=== PATIENT | male | born 1940 | race Caucasian/White ===

== ENCOUNTER → 2017-05-26 | Outpatient (CLI) | payer MEDICARE ==
[~2017-05-26] MED LIST: AMLO-96 PO; ASP81 PO; ASPI-1403; CEF300 PO; CEP500 PO; FURO-45 PO; LISI5TAB25 PO; LOR5 PO; MECL25TA9 PO; METO25TA23 PO; NAP250 PO; OMEP-125 PO; PRAV20TA65 PO; PRE20 PO; PRILOSEC
--- NOTE | 2017-05-26 14:28 | EKG ---
FACILITY: [facility] - [place], [place] PATIENT NAME: KELLY GALVAN : [id number] MR: [id number] V: [id number] EXAM DATE: ORDERING PHYSICIAN: JULIETA SMALL TECHNOLOGIST: TAINA French Reason : HTN, PRE-OP Blood Pressure : / mmHG Vent. Rate : 070 BPM Atrial Rate : 070 BPM P-R Int : 170 ms QRS Dur : 096 ms QT Int : 414 ms P-R-T Axes : 046 067 029 degrees QTc Int : 447 ms Sinus rhythm Nonspecific ST findings inferolaterally When compared with ECG of 08-OCT-2012 17:09, No significant change was found Confirmed by MONSE MONTANA ([id number]) on 05/26/2017 7:51:56 PM Referred By: STACI Confirmed By:MONSE MONTANA
== END ==
LOC: RESP 14:15
PROVIDERS: ATTEND Family Medicine
DX: Z01.810 Encounter for preprocedural cardiovascular examination (principal); H26.9 Unspecified cataract; I10 Essential (primary) hypertension
CPT/HCPCS: 93005

== ENCOUNTER → 2017-06-09 | Outpatient (CLI) | payer MEDICARE ==
--- NOTE | 2017-06-09 14:54 | RADIOLOGY IMAGING REPORT ---
[place] [facility] [place]IENT NAME: Derian Torres : 1940 MR: [id number] V: [id number] EXAM DATE: ORDERING PHYSICIAN: JULIETA SMALL TECHNOLOGIST: Location: [facility] - [place] Patient: Derian Torres : 1940 Visit/Account:[id number] Date of Sevice: 06/09/2017 KIDNEYS EXAMINATION: Renal ultrasound. History: Hematuria, history of prostate cancer COMPARISON STUDIES: CT October 15, 2016 FINDINGS: Kidneys: Right kidney- 9.6 x 5.2 x 4.1 cm Left kidney- 9.9 x 7.8 x 6.6 cm Uniform and symmetric blood flow in each kidney by Doppler ultrasound. Hydronephrosis: none There is a 1 cm cyst upper pole the right kidney is a lobular contour to the left kidney. Parapelvic cyst were not demonstrated. The resistive index on the right 0.64 and on the left 0.66 Bladder: Prevoid volume 385 mL. Post void residual 173 mL. There is a large diverticulum projecting from the posterior left side of the bladder. Bilateral ureteral jets are present Abdominal aorta and IVC: Not visualized IMPRESSION: There is a large diverticulum projecting from the posterior left side the bladder 1 cm cyst upper pole the right kidney Left kidney has a lobular contour Report Dictated By: Fina Humphreys MD at 06/09/2017 2:26 PM Report E-Signed By: Fina Humphreys MD at 06/09/2017 2:50 PM WSN:[email or web address]
== END ==
LOC: US 01:36
PROVIDERS: ATTEND Family Medicine
DX: N32.3 Diverticulum of bladder (principal); N28.1 Cyst of kidney, acquired; N28.9 Disorder of kidney and ureter, unspecified
CPT/HCPCS: 76705

== ENCOUNTER → 2017-06-18 | Outpatient (CLI) | payer MEDICARE ==
--- NOTE | 2017-06-18 13:26 | RADIOLOGY IMAGING REPORT ---
FACILITY: [facility] PATIENT NAME: Derian Torres : 1940 MR: [id number] V: [id number] EXAM DATE: ORDERING PHYSICIAN: JULIETA SMALL TECHNOLOGIST: Location: [facility] - [place] Patient: Derian Torres : 1940 Visit/Account:[id number] Date of Sevice: 06/18/2017 LUMBAR SPINE 2 OR 3 VIEW History: Low back pain. Comparison study: None. Findings: The lumbar spine has normal lordotic curvature and there is no fracture or spondylolisthes is or spondylolysis. There are prominent diffuse discogenic degenerative changes throughout the lumbar spine that manifest as loss of disc space height and spondylosis. The sacroiliac joints are unremarkable. There is scoliosis of the thoracolumbar spine with convexity pointing to the right. IMPRESSION: 1. No fracture or spondylolisthesis. 2. Diffuse and severe discogenic degenerative changes. 3. Scoliosis as described above. Report Dictated By: Kd Pitts MD at 06/18/2017 1:21 PM Report E-Signed By: Kd Pitts MD at 06/18/2017 1:22 PM WSN:[email or web address]
--- NOTE | 2017-06-18 13:29 | RADIOLOGY IMAGING REPORT ---
[place] [facility] [place]: Derian Torres : 1940 MR: [id number] V: [id number] EXAM DATE: ORDERING PHYSICIAN: JULIETA SMALL TECHNOLOGIST: Location: [facility] Patient: Derian Torres : 1940 Visit/Account:[id number] Date of Sevice: 06/18/2017 THORACIC SPINE 2 VIEW History: Back pain. Comparison study: None. Findings: There are discogenic degenerative changes throughout the thoracic spine. There are is an anterior wedge deformity in the mid to upper thoracic spine that likely represents a chronic osteoporotic vertebral body compression fracture. In the cervical spine there are discogenic degenerative changes in its midportion. At C4-5 there is anterior spondylolisthesis of 2 mm. At C5-6 there is retrospondylolisthesis of 1-2 mm. IMPRESSION: 1. Discogenic degenerative changes throughout the thoracic spine. 2. Chronic appearing osteoporotic vertebral body anterior wedge compression fracture in the mid to u pper thoracic spine. 3. Discogenic degenerative changes in the cervical spine with subtle anterior spondylolisthesis at C 4-5 and retrospondylolisthesis at C5-6. Report Dictated By: Kd Pitts MD at 06/18/2017 1:22 PM Report E-Signed By: Kd Pitts MD at 06/18/2017 1:24 PM WSN:[email or web address]
== END ==
LOC: RAD 12:14
PROVIDERS: ATTEND Family Medicine
DX: M51.36 Other intervertebral disc degeneration, lumbar region (principal); M41.85 Other forms of scoliosis, thoracolumbar region; M48.54XA Collapsed vertebra, not elsewhere classified, thoracic region, initial encounter for fracture; M43.12 Spondylolisthesis, cervical region
CPT/HCPCS: 72070; 72100

== ENCOUNTER → 2017-07-25 | Outpatient (CLI) | payer MEDICARE | LOC: LAB 08:33 | PROVIDERS: ATTEND Urology | DX: C61 Malignant neoplasm of prostate (principal) | CPT/HCPCS: 36415; 84153 ==

== ENCOUNTER → 2017-11-17 | Outpatient (CLI) | payer MEDICARE ==
[2017-11-17 10:38] LABS: PLATELET COUNT, AUTOMATED 202 K/uL (150-450)
== END ==
LOC: LAB 10:18
PROVIDERS: ATTEND Urology
DX: C61 Malignant neoplasm of prostate (principal)
CPT/HCPCS: 36415; 82374; 82435; 84132; 84153; 84295; 85025

== ENCOUNTER → 2017-11-25 | Outpatient (CLI) | payer MEDICARE ==
--- NOTE | 2017-11-25 14:35 | RADIOLOGY IMAGING REPORT ---
[place] [facility] [place]: Derian Torres : 1940 MR: [id number] V: [id number] EXAM DATE: ORDERING PHYSICIAN: JULEITA SMALL TECHNOLOGIST: Location: [facility] - [place] Patient: Derian Torres : 1940 Visit/Account:[id number] Date of Sevice: 11/25/2017 Exam type: RIBS RIGHT History: Right-sided rib pain x1 week Comparison: February 11, 2017 Findings: Three views of the right ribs reveal no gross evidence of acute fracture there suggestion of possible old fractures through the anterior right 10th and 11th ribs. No evidence of pneumothorax or pulmona ry consolidation.. IMPRESSION: 1. No evidence of acute right rib fracture Possible old fracture to the anterior right 10th and 11th ribs Report Dictated By: Fina Humphreys MD at 11/25/2017 2:02 PM Report E-Signed By: Fina Humphreys MD at 11/25/2017 2:30 PM WSN:[email or web address]
== END ==
LOC: RAD 10:47
PROVIDERS: ATTEND Family Medicine
DX: R07.89 Other chest pain (principal)
CPT/HCPCS: 71100

== ENCOUNTER → 2018-03-14 | Outpatient (CLI) | payer MEDICARE ==
[~2018-03-14] MED LIST changes: +AMLO-111 PO; -AMLO-96 PO
[2018-03-14 08:29] LABS: PLATELET COUNT, AUTOMATED 234 K/uL (150-450)
== END ==
LOC: LAB 08:03
PROVIDERS: ATTEND Urology
DX: C61 Malignant neoplasm of prostate (principal)
CPT/HCPCS: 36415; 82040; 82247; 82310; 82374; 82435; 82565; 82947; 84075; 84132; 84153; 84155; 84295; 84450; 84460; 84520; 85025

== ENCOUNTER 2018-03-22 09:38 | Emergency (ER) | payer MEDICARE ==
[2018-03-22] MEDS ORDERED: AMLO-111 PO (09:47)
--- NOTE | 2018-03-22 10:15 | ER Report ---
History and Physical Time Seen By MD: 09:55 Hx. of Stated Complaint: SLIPPED THIS AM - FELL ONTO LEFT KNEE. HPI/ROS CHIEF COMPLAINT: right knee pain HISTORY OF PRESENT ILLNESS: Patient was walking down the ramp from his house after he had shoveled it off. He notes that the ramp was icy. He normally walks with a cane, though was not walking lidocaine at the time however was holding onto the railing. He slipped with the ice and landed directly on his right knee. He was able to get himself up, and he has been weight bearing with assistance of a cane. However, pain has been gradually increasing as has swelling at the area. The patient now complains of moderate pain to right knee. He does not have weakness, numbness. He has had prior surgery on right ankle but otherwise no other prior bony surgery. He did not otherwise injure himself in the fall. He had no preceding or subsequent shortness of breath, chest pain, headache, or other symptoms. REVIEW OF SYSTEMS: Constitutional: No fever, no chills eyes - no visual change Cardiovascular: No chest pain, no palpitations. Respiratory: No cough, no shortness of breath. Gastrointestinal: No abdominal pain, no vomiting Musculoskeletal: No back pain. Skin: No rashes. Neurological: No headache. Remainder of the 14 system rev: Yes Allergies: Coded Allergies: shellfish derived (Verified Allergy, Mild, VOMITING, 12/27/14) Uncoded Allergies: SHELLFISH (Allergy, Intermediate, NAUSEA/VOMITING, 10/08/12) Home Meds Reported Medications Amlodipine Besylate (AMLODIPINE BESYLATE) 5 Mg Tablet, 0.5 TAB PO QPM, TAB 03/22/18 Amlodipine Besylate (AMLODIPINE BESYLATE) 5 Mg Tablet, 1 TAB PO QDAY, TAB 12/27/14 Pravastatin Sodium (PRAVACHOL) 20 Mg Tablet, 20 MG PO DAILY 10/08/12 Metoprolol Succinate (METOPROLOL SUCCINATE) 25 Mg Tab.er.24h, 0.5 TAB PO DAILY 10/08/12 Lisinopril (LISINOPRIL) 5 Mg Tablet, 10 MG PO DAILY 10/08/12 Furosemide (FUROSEMIDE) 20 Mg Tablet, 10 MG PO DAILY 10/08/12 Aspirin (Childrens Chewable Aspirin) 81 Mg Chew, 81 MG PO QDAY, 0 Refills 01/27/08 Discontinued Reported Medications Omeprazole (OMEPRAZOLE) 20 Mg Capsule.dr, 1 CAP PO QDAY, CAP 12/27/14 Discontinued Scripts Meclizine Hcl (MECLIZINE HCL) 25 Mg Tablet, 25 MG PO BID, #20 TAB Prov:LEILA CORTES OFFICE MESSENGER HELPER 12/27/14 Reviewed Nurses Notes: Yes Hx Smoking: No Hx Substance Use Disorder: No Hx Alcohol Use: No Constitutional Vital Sign - Last 24 Hours 03/22/18 09:43 Temp 98.1 Pulse 61 Resp 20 B/P (MAP) 169/97 Pulse Ox 95 O2 Delivery Room Air Physical Exam General Appearance: The patient is alert, has no immediate need for airway protection and no signs of toxicity. [ ] Eyes: Pupils equal and round no pallor or injection. ENT, Mouth: Mucous membranes are moist. Respiratory: There are no retractions, lungs are clear to auscultation. Cardiovascular: Regular rate and rhythm. Neurological: alert, oriented Skin: sm abrasion to r knee. No lacerations Musculoskeletal: no right thigh, tib/fib, or ankle pain, Pt has ttp r patella. Patella and quadriceps tendon intact. Able to fully flex hip, able to flex knee to 20 degress. Significant effusion noted. Neg becca's, no lateral or medial joint ttp 2+ DP pulse. FROM ankle, nl sensation distally DIFFERENTIAL DIAGNOSIS: After history and physical exam differential diagnosis was considered for patella fx, ligament injury, femur/tib fx, or other emergent complication of fall. Medical Decision Making ED Course/Re-evaluation ED Course Patient presents after fall onto right knee. Exam and x-ray consistent with nondisplaced comminuted fracture of the patella. Extensor mechanism is intact. I performed arthrocentesis after verbal consent and discussion wrist and benefits to provide pain relief. Over 90 mL's of hematoma removed. Patient tolerated this very well. Knee is immobilized with Kenneth wrap and leg immobilizer afterwards. I thoroughly examined joint above and below and note no evidence of fracture or other injury. I consult to Dr. Giordano for follow-up. Patient to call Friday. Procedure Procedure: Arthrocentesis. After verbal informed consent from patient explaining the risks including infection and bleeding a arthrocentesis was performed on the knee. The arthrocentesis was performed after the patient was prepped and draped in the usual fashion. The joint was anesthetized with 1% lidocaine. Approximately 90mL of bloody hematoma fluid was obtained. I injected 5mL of 1% lidocaine for anesthesia. There were no complications. The procedure was performed by myself. Decision to Disposition Date: Mar 22, 2018 Decision to Disposition Time: 11:20 Depart Departure Latest Vital Signs Vital Signs Date Time Temp Pulse Resp B/P (MAP) Pulse Ox O2 Delivery O2 Flow Rate FiO2 03/22/18 09:43 98.1 61 20 169/97 95 Room Air Impression: Primary Impression: Right patella fracture Condition: Improved Disposition: HOME OR SELF-CARE Referrals: JULIETA SMALL DO (PCP) MARY GIORDANO MD 2 Days call office Friday for f/u Patient Instructions: Patellar Fracture (DC) Additional Instructions: As we discussed, keep knee immobilizer on at all times. You may weight bear as tolerated, but certainly use cane. Call Dr. Giordano's office for follow up. You may use tylenol 650mg every 4-6 hours for pain, ice 20 minutes at a time (you may remove immobilizer for this when leg is extended). Keep elevated above heart when not ambulating. Return for uncontrolled pain, weakness in extremity, or any concerns. Problem Qualifiers Primary Impression: Right patella fracture Encounter type: initial encounter Fracture type: closed Fracture morphology: comminuted Fracture alignment: nondisplaced Qualified Codes: S82.044A - Nondisplaced comminuted fracture of right patella, initial encounter for closed fracture CISCO LOVELL MD Mar 22, 2018 10:15
--- NOTE | 2018-03-22 10:38 | RADIOLOGY IMAGING REPORT ---
FACILITY: [facility] - [place] PATIENT NAME: Derian Torres : 1940 MR: [id number] V: [id number] EXAM DATE: ORDERING PHYSICIAN: CISCO LOVELL TECHNOLOGIST: Location: [facility] Patient: Derian Torres : 1940 Visit/Account:[id number] Date of Sevice: 03/22/2018 KNEE 4 VIEW RIGHT Indication: Direct fall onto the patella. Comparison: None available Findings: 3 views right knee were obtained. Comminuted fracture of the patella without significant displacement. There is fractures of patellar e nthesophytes. The joint spaces are well-maintained. Large effusion. Mild/moderate prepatellar soft tissue swelling. No evidence of radiopaque foreign body. IMPRESSION: 1. Comminuted fracture of the patella without significant displacement. 2. Large joint effusion. 3. Mild/moderate prepatellar soft tissue swelling. Report Dictated By: Jacobo Nj MD at 03/22/2018 10:31 AM Report E-Signed By: Jacobo Nj MD at 03/22/2018 10:33 AM WSN:[id number]
[2018-03-22] MEDS ORDERED: DIPHTH/TETANUS/ACEL. PERTUSSIS IM ONLY ONE (10:40)
[2018-03-22 11:00] VITALS: BP 153/83
== END 2018-03-22 11:40 | disposition home or self-care (01) ==
LOC: ER 10:09
DX: S82.044A Nondisplaced comminuted fracture of right patella, initial encounter for closed fracture (principal); W00.0XXA Fall on same level due to ice and snow, initial encounter
CPT/HCPCS: 20605; 73564; 90471; 90715; 99284; L1830

== ENCOUNTER 2018-03-22 22:15 | Emergency (ER) | payer MEDICARE ==
--- NOTE | 2018-03-22 22:18 | ER Report ---
History and Physical Time Seen By MD: 22:18 HPI/ROS CHIEF COMPLAINT: Chest pain HISTORY OF PRESENT ILLNESS: 27-year-old male presents complaining of chest pain. He describes substernal sharp without radiation. He notes mild shortness of breath. He has no fever or productive cough. Patient's history is significant that he was seen earlier in the ER after he slipped and fell on the ice and fractured his right patella. Arthrocentesis was performed and 90 mL of blood was removed from his knee. He was discharged home in a knee immobilizer with a compressive wrap. He was given Tylenol with Codeine for pain relief. He took one of those at home with the chest pain, which did not improve the chest pain. He subsequently took a nitroglycerin Olivier a history of coronary artery disease. He had some improvement of the pain. He presents to the ER for evaluation. Patient reports that he took his 81 mg aspirin this morning before he fell on the ice. REVIEW OF SYSTEMS: Respiratory: No cough, no dyspnea. Cardiovascular: As above Gastrointestinal: No vomiting, no abdominal pain. Musculoskeletal: No back pain. Allergies: Coded Allergies: shellfish derived (Verified Allergy, Mild, VOMITING, 12/27/14) Uncoded Allergies: SHELLFISH (Allergy, Intermediate, NAUSEA/VOMITING, 10/08/12) Home Meds Reported Medications Amlodipine Besylate (AMLODIPINE BESYLATE) 5 Mg Tablet, 0.5 TAB PO QPM, TAB 03/22/18 Amlodipine Besylate (AMLODIPINE BESYLATE) 5 Mg Tablet, 1 TAB PO QDAY, TAB 12/27/14 Pravastatin Sodium (PRAVACHOL) 20 Mg Tablet, 20 MG PO DAILY 10/08/12 Metoprolol Succinate (METOPROLOL SUCCINATE) 25 Mg Tab.er.24h, 0.5 TAB PO DAILY 10/08/12 Lisinopril (LISINOPRIL) 5 Mg Tablet, 10 MG PO DAILY 10/08/12 Furosemide (FUROSEMIDE) 20 Mg Tablet, 10 MG PO DAILY 10/08/12 Aspirin (Childrens Chewable Aspirin) 81 Mg Chew, 81 MG PO QDAY, 0 Refills 01/27/08 Discontinued Reported Medications Omeprazole (OMEPRAZOLE) 20 Mg Capsule.dr, 1 CAP PO QDAY, CAP 12/27/14 Discontinued Scripts Meclizine Hcl (MECLIZINE HCL) 25 Mg Tablet, 25 MG PO BID, #20 TAB Prov:SOPHIA,CHRISTOPHER M HUMAN RESOURCE ADVISER 12/27/14 Past Medical/Surgical History Patient has a past medical history of headaches, mitral valve prolapse, angina, hypertension, hypercholesterolemia, sleep apnea, GERD, prostate cancer. Patient has a surgical history of orthopedic surgery, cholecystectomy. Patient has a family history of cancer, diabetes. Reviewed Nurses Notes: Yes Old Medical Records Reviewed: Yes Hx Smoking: No Hx Substance Use Disorder: No Hx Alcohol Use: No Constitutional Vital Sign - Last 24 Hours 03/22/18 03/22/18 03/22/18 03/22/18 22:18 22:20 22:30 22:45 Temp 97.6 Pulse 56 55 Resp 24 48 B/P (MAP) 143/81 (101) 143/81 143/75 (97) 150/79 (102) Pulse Ox 92 98 O2 Delivery Room Air 03/22/18 03/22/18 03/22/18 03/22/18 23:00 23:15 23:43 23:45 Pulse 54 58 56 Resp 12 9 12 B/P (MAP) 142/81 (101) 114/75 (88) 135/74 (94) 138/75 (96) Pulse Ox 95 89 97 03/23/18 03/23/18 03/23/18 03/23/18 00:00 00:05 00:15 00:20 Pulse 56 56 58 Resp 17 14 10 B/P (MAP) 157/85 (109) 143/81 (101) Pulse Ox 94 87 98 03/23/18 03/23/18 03/23/18 03/23/18 00:30 00:35 00:45 00:50 Pulse 59 59 Resp 23 16 B/P (MAP) 141/72 (95) 135/78 (97) Pulse Ox 90 90 03/23/18 01:00 B/P (MAP) 150/83 (105) Intake and Output 03/22/18 03/22/18 03/23/18 15:00 23:00 07:00 Intake Total 500 ml Balance 500 ml Physical Exam Vital signs stable, afebrile, pulse ox normal General Appearance: The patient is alert, has no immediate need for airway protection and no current signs of toxicity. Mild distress, slightly pale appearing, skin warm and dry HEENT: Pupils equal and round no injection. TMs normal, oropharynx without redness or exudate, mucous. Membranes are moist Respiratory: Chest is non tender, lungs are clear to auscultation. No chest wall tenderness Cardiac: regular rate and rhythm, no murmur Gastrointestinal: Abdomen is soft and non tender, no masses, bowel sounds normal. Musculoskeletal: Neck: Neck is supple and non tender. Extremities have full range of motion and are non tender., Right lower extremity is maintained in a knee immobilizer. He has fractured patella of the right lower foot is neurovascularly intact without edema. Skin: No rashes or lesions. [ ] DIFFERENTIAL DIAGNOSIS: After history and physical exam differential diagnosis was considered for chest pain including but not limited to myocardial ischemia, pericarditis pulmonary embolus, chest wall pain, pleural inflammation and pulmonary infectious causes. Medical Decision Making Data Points Result Diagram: 03/22/18222903/22/182229 Laboratory Hematology Test 03/22/18 22:30 Red Blood Count 5.30 M/uL (4.00-5.60) Mean Corpuscular Volume 85.6 fL (80.0-96.0) Mean Corpuscular Hemoglobin 29.0 pg (26.0-33.0) Mean Corpuscular Hemoglobin Concent 33.9 g/dL (32.0-36.0) Red Cell Distribution Width 14.0 % (11.5-14.5) Mean Platelet Volume 7.8 fL (7.2-11.1) Neutrophils (%) (Auto) 62.4 % (39.4-72.5) Lymphocytes (%) (Auto) 26.1 % (17.6-49.6) Monocytes (%) (Auto) 8.9 % (4.1-12.4) Eosinophils (%) (Auto) 1.8 % (0.4-6.7) Basophils (%) (Auto) 0.8 % (0.3-1.4) Nucleated RBC Relative Count (auto) 0.1 /100WBC Neutrophils # (Auto) 5.6 K/uL (2.0-7.4) Lymphocytes # (Auto) 2.4 K/uL (1.3-3.6) Monocytes # (Auto) 0.8 K/uL (0.3-1.0) Eosinophils # (Auto) 0.2 K/uL (0.0-0.5) Basophils # (Auto) 0.1 K/uL (0.0-0.1) Nucleated RBC Absolute Count (auto) 0.01 K/uL Prothrombin Time 13.0 seconds (12.0-14.4) Prothromb Time International Ratio 0.98 Activated Partial Thromboplast Time 27 seconds (23-35) D-Dimer Quantitative (PE/DVT) 3.61 ug/ml (0-0.50) Sodium Level 140 mmol/L (137-145) Potassium Level 3.7 mmol/L (3.5-5.0) Chloride Level 106 mmol/L (98-107) Carbon Dioxide Level 24 mmol/L (22-30) Blood Urea Nitrogen 17 mg/dl (9-21) Creatinine 1.00 mg/dl (0.66-1.25) Glomerular Filtration Rate Calc > 60.0 Random Glucose 126 mg/dl (75-110) Calcium Level 9.0 mg/dl (8.4-10.2) Total Bilirubin 0.5 mg/dl (0.2-1.3) Aspartate Amino Transf (AST/SGOT) 41 U/L (0-35) Alanine Aminotransferase (ALT/SGPT) 34 U/L (0-56) Alkaline Phosphatase 79 U/L (0-126) Troponin I < 0.012 ng/ml B-Type Natriuretic Peptide 69 pg/ml (0-100) Total Protein 7.0 g/dl (6.3-8.2) Albumin 3.9 g/dl (3.5-5.0) Chemistry Test 03/22/18 22:30 White Blood Count 9.0 k/uL (4.5-11.0) Red Blood Count 5.30 M/uL (4.00-5.60) Hemoglobin 15.4 g/dL (14.0-18.0) Hematocrit 45.3 % (42.0-52.0) Mean Corpuscular Volume 85.6 fL (80.0-96.0) Mean Corpuscular Hemoglobin 29.0 pg (26.0-33.0) Mean Corpuscular Hemoglobin Concent 33.9 g/dL (32.0-36.0) Red Cell Distribution Width 14.0 % (11.5-14.5) Platelet Count 260 K/uL (150-450) Mean Platelet Volume 7.8 fL (7.2-11.1) Neutrophils (%) (Auto) 62.4 % (39.4-72.5) Lymphocytes (%) (Auto) 26.1 % (17.6-49.6) Monocytes (%) (Auto) 8.9 % (4.1-12.4) Eosinophils (%) (Auto) 1.8 % (0.4-6.7) Basophils (%) (Auto) 0.8 % (0.3-1.4) Nucleated RBC Relative Count (auto) 0.1 /100WBC Neutrophils # (Auto) 5.6 K/uL (2.0-7.4) Lymphocytes # (Auto) 2.4 K/uL (1.3-3.6) Monocytes # (Auto) 0.8 K/uL (0.3-1.0) Eosinophils # (Auto) 0.2 K/uL (0.0-0.5) Basophils # (Auto) 0.1 K/uL (0.0-0.1) Nucleated RBC Absolute Count (auto) 0.01 K/uL Prothrombin Time 13.0 seconds (12.0-14.4) Prothromb Time International Ratio 0.98 Activated Partial Thromboplast Time 27 seconds (23-35) D-Dimer Quantitative (PE/DVT) 3.61 ug/ml (0-0.50) Glomerular Filtration Rate Calc > 60.0 Calcium Level 9.0 mg/dl (8.4-10.2) Total Bilirubin 0.5 mg/dl (0.2-1.3) Aspartate Amino Transf (AST/SGOT) 41 U/L (0-35) Alanine Aminotransferase (ALT/SGPT) 34 U/L (0-56) Alkaline Phosphatase 79 U/L (0-126) Troponin I < 0.012 ng/ml B-Type Natriuretic Peptide 69 pg/ml (0-100) Total Protein 7.0 g/dl (6.3-8.2) Albumin 3.9 g/dl (3.5-5.0) Coagulation Test 03/22/18 22:30 Prothrombin Time 13.0 seconds Prothromb Time International Ratio 0.98 Activated Partial Thromboplast Time 27 seconds D-Dimer Quantitative (PE/DVT) 3.61 ug/ml EKG/Imaging EKG Interpretation 12 lead EK Rhythm: Sinus bradycardia, rate 56 bpm [place]: normal QRS: normal ST segments: normal, comparison to previous EKG dated 05/26/17, no significant change Imaging X-ray: Single view portable chest x-ray was obtained. I viewed the images myself on the PACS system. My interpretation of the images is: No infiltrate, no effusion, normal mediastinum., Comparison to previous chest x-ray 02/02/17, no significant change. The radiologist interpretation had no clinically significant variation from this interpretation. Results: CT scan of the CTA pulmonary angiogram was obtained. The results of the study are CTA CHEST WW/O CNTR (PULM ANG) HISTORY: Suspected pulmonary embolus. COMPARISON: Prior PE CT 01/26/2008. Prior chest x-rays earlier same day and dating to 10/11/2007. TECHNIQUE: Pulmonary embolus protocol - Thin-slice axial imaging of the chest was performed during maximal pulmonary arterial opacification with intravenous nonionic iodinated contrast. 3D coronal slab MIPs and 2D reconstructions in the coronal and sagittal planes were performed to aid in pulmonary embolus detection. Chemical Tank Worker images have been stored on PACS. One of the following dose optimization techniques was utilized in the performance of this exam: Automated exposure control; adjustment of the mA and/or kV according to the patient's size; or use of an iterative reconstruction technique. Specific details can be referenced in the facility's radiology CT exam operational policy. CONTRAST: 75 mL of IV Isovue-370. FINDINGS: Pulmonary arteries: There is adequate opacification of the pulmonary arteries to the segmental branches. There are no filling defects in the visible pulmonary arteries. Pulmonary arteries are normal in caliber. Thoracic inlet: Normal. Aorta: There is mild atherosclerosis. No aneurysm or dissection. Heart / Pericardium: The heart is normal. There is no ventricular septal de viation. There is no pericardial effusion. There is mild coronary artery calcification. Mediastinum / Birgit: Normal birgit. There is a 1.5 cm short axis diameter subcarinal lymph node, unchanged from 2008. Lungs / Pleura: No pleural effusion. There is a calcified granuloma in the left upper lobe. There is a 4 x 2 mm left upper lobe pulmonary nodule (image 45 series 7), not significantly changed, when accounting for slice selection. There is an ill-defined groundglass opacity in the right upper lobe on image 34 series 7. It measures 1.3 x 1.4 cm, unchanged from 2008, favoring a benign process. No pneumothorax. The airways are normal. Upper abdomen: Cholecystectomy. Moderate to severe pancreatic atrophy and fatty infiltration. Calcified granulomas within the spleen. Colonic diverticulosis without diverticulitis. Small type I hiatal hernia. 1.1 cm left adrenal adenoma. Musculoskeletal/vertebra/body wall: There is severe degenerative change of the right glenohumeral joint. There is mild degenerative change of the left. There is mild to moderate degenerative change of the thoracic spine. There is stable wedging of T6-T10, and there are stable concave deformities of the superior end plates of T3-T5. There are numerous Schmorl nodes. IMPRESSION: 1. No pulmonary embolism. 2. Stable 1.4 cm average size groundglass opacity in the right upper lobe. The stability for 10 years favors a benign process. 3. Mild to moderate joint change of the spine. 4. Severe degenerative change of the right glenohumeral joint. The study was read by the radiologist. I viewed the images myself on the PACS system. ED Course/Re-evaluation Clinical Indication for ER IV: Hydration, IV Access ED Course Patient was admitted to an examination room. H&P was done. The differential diagnosis was considered. Patient presents with chest pain for several hours. He had a patella fracture earlier today. His presentations are worrisome for cardiac disease or a pulmonary embolus him. Patient had an immediate EKG performed which is unremarkable and unchanged from his previous EKG. Patient did improve with nitroglycerin. Patient's given fentanyl for pain. Zofran and diagnostic studies are sent off. His troponin returned unremarkable. His d- dimer is elevated to 3.6. Likely from his patella fracture. Pulmonary embolism needs to be ruled out. A CTA pulmonary gram is performed which is negative for evidence of pulmonary embolism. It's pain feels improved. He will go home, continue taking Tylenol with codeine for pain relief. He is advised to take some ibuprofen 200 mg 2 tablets 3 times a day for additional pain relief. He is advised to double up on the Tylenol with Codeine as needed. Decision to Disposition Date: Mar 23, 2018 Decision to Disposition Time: 01:21 Depart Departure Latest Vital Signs Vital Signs Date Time Temp Pulse Resp B/P (MAP) Pulse Ox O2 Delivery O2 Flow Rate FiO2 11/19/18 01:00 150/83 (105) 03/23/18 00:50 59 16 90 03/22/18 22:20 97.6 Room Air Impression: Primary Impression: Chest pain Additional Impression: Fracture of right patella Condition: Improved Disposition: HOME OR SELF-CARE Referrals: JULIETA SMALL DO (PCP) Patient Instructions: Chest Pain (ED) Additional Instructions: Take ibuprofen 200 mg 1-2 tablets 2-3 times daily with food Follow-up with orthopedics and primary care next week. Problem Qualifiers Primary Impression: Chest pain Chest pain type: unspecified Qualified Codes: R07.9 - Chest pain, unspecified Additional Impression: Fracture of right patella Encounter type: initial encounter Fracture type: closed Fracture morphology: unspecified fracture morphology Fracture alignment: nondisplaced Qualified Codes: S82.001A - Unspecified fracture of right patella, initial encounter for closed fracture AUSTIN LONG DO Mar 22, 2018 22:18
[2018-03-22] MEDS ORDERED: ASPIRIN 81 MG CHEW PO ONE (22:25)
[2018-03-22] MEDS ORDERED: ONDANSETRON 4 MG/2 ML VIAL IVP ONE (22:30)
[2018-03-22] MEDS ORDERED: fentaNYL CITR 100 MCG/2 ML AMP IVP ONE (22:30)
[2018-03-22 22:45] LABS: PLATELET COUNT, AUTOMATED 260 K/uL (150-450)
[2018-03-22 22:53] LABS: INR 0.98
--- NOTE | 2018-03-22 23:03 | RADIOLOGY IMAGING REPORT ---
FACILITY: [facility] - [place] PATIENT NAME: Derian Torres : 1940 MR: [id number] V: [id number] EXAM DATE: ORDERING PHYSICIAN: AUSTIN LONG TECHNOLOGIST: Location: [facility] Patient: Derian Torres : 1940 Visit/Account:[id number] Date of Sevice: 03/22/2018 CHEST SINGLE AP 03/22/2018 22:22 hours. HISTORY: Acute chest pain. COMPARISON: 11/25/2017 and studies dating to 10/21/2007. TECHNIQUE: Portable AP view of the chest. FINDINGS: Tubes/lines/hardware: There are external chest leads. Pulmonary: There is linear subsegmental scarring or atelectasis at the right base. There is a calcifi ed granuloma at the left mid lung. There is no pneumothorax or pleural effusion. Cardiomediastinal: Cardiac and mediastinal silhouettes are within normal limits. There is mild aortic calcification. Bones/soft tissues: No acute osseous abnormality. There is severe degenerative change of the glenohum eral joints. There is degenerative change of the spine and of the acromioclavicular joints. The visib le abdomen is normal. IMPRESSION: 1. Linear scarring or atelectasis at the right base. Report Dictated By: Marcy Arrieta at 03/22/2018 10:57 PM Report E-Signed By: Marcy Arrieta at 03/22/2018 10:59 PM WSN:[id number]
[2018-03-22] MEDS ORDERED: LR(*) 1000 ML BAG 1,000 ML IV PRN (23:05)
--- NOTE | 2018-03-22 23:06 | EKG ---
[place] [facility] [place]IENT NAME: KELLY GALVAN : [id number] MR: [id number] V: [id number] EXAM DATE: ORDERING PHYSICIAN: AUSTIN LONG TECHNOLOGIST: ANDRY Test Reason : CHEST PAIN Blood Pressure : / mmHG Vent. Rate : 056 BPM Atrial Rate : 056 BPM P-R Int : 186 ms QRS Dur : 098 ms QT Int : 468 ms P-R-T Axes : 050 051 051 degrees QTc Int : 451 ms Sinus bradycardia Otherwise normal ECG Confirmed by SPRING ANDERSEN ([id number]) on 03/23/2018 6:16:45 AM Referred By: Confirmed By:SPRING ANDERSEN
[2018-03-22] MEDS ORDERED: IOPAMIDOL 76% 75 ML INFUS BTL 75 ML ONE (23:29)
[2018-03-22] MEDS ORDERED: NS(*) 0.9% 50 ML BAG 50 ML ONE (23:29)
--- NOTE | 2018-03-23 00:28 | RADIOLOGY IMAGING REPORT ---
FACILITY: [facility] PATIENT NAME: Derian Torres : 1940 MR: [id number] V: [id number] EXAM DATE: ORDERING PHYSICIAN: AUSTIN LONG TECHNOLOGIST: Location: [facility] Patient: Derian Torres : 1940 Visit/Account:[id number] Date of Sevice: 03/22/2018 CTA CHEST WW/O CNTR (PULM ANG) HISTORY: Suspected pulmonary embolus. COMPARISON: Prior PE CT 01/26/2008. Prior chest x-rays earlier same day and dating to 10/11/2007. TECHNIQUE: Pulmonary embolus protocol - Thin-slice axial imaging of the chest was performed during ma ximal pulmonary arterial opacification with intravenous nonionic iodinated contrast. 3D coronal slab MIPs and 2D reconstructions in the coronal and sagittal planes were performed to aid in pulmonary emb olus detection. Ring Barker Operator images have been stored on PACS. One of the following dose optimization techniques was utilized in the performance of this exam: Autom ated exposure control; adjustment of the mA and/or kV according to the patient's size; or use of an i terative reconstruction technique. Specific details can be referenced in the facility's radiology CT exam operational policy. CONTRAST: 75 mL of IV Isovue-370. FINDINGS: Pulmonary arteries: There is adequate opacification of the pulmonary arteries to the segmental branch es. There are no filling defects in the visible pulmonary arteries. Pulmonary arteries are normal in caliber. Thoracic inlet: Normal. Aorta: There is mild atherosclerosis. No aneurysm or dissection. Heart / Pericardium: The heart is normal. There is no ventricular septal deviation. There is no peric ardial effusion. There is mild coronary artery calcification. Mediastinum / Birgit: Normal birgit. There is a 1.5 cm short axis diameter subcarinal lymph node, unchang ed from 2007. Lungs / Pleura: No pleural effusion. There is a calcified granuloma in the left upper lobe. There is a 4 x 2 mm left upper lobe pulmonary nodule (image 45 series 7), not significantly changed, when acco unting for slice selection. There is an ill-defined groundglass opacity in the right upper lobe on im age 33 series 7. It measures 1.3 x 1.4 cm, unchanged from 2008, favoring a benign process. No pneumot horax. The airways are normal. Upper abdomen: Cholecystectomy. Moderate to severe pancreatic atrophy and fatty infiltration. Calcifi ed granulomas within the spleen. Colonic diverticulosis without diverticulitis. Small type I hiatal h ernia. 1.1 cm left adrenal adenoma. Musculoskeletal/vertebra/body wall: There is severe degenerative change of the right glenohumeral jonathan nt. There is mild degenerative change of the left. There is mild to moderate degenerative change of t he thoracic spine. There is stable wedging of T6-T10, and there are stable concave deformities of the superior endplates of T3-T5. There are numerous Schmorl nodes. IMPRESSION: 1. No pulmonary embolism. 2. Stable 1.4 cm average size groundglass opacity in the right upper lobe. The stability for 10 years favors a benign process. 3. Mild to moderate joint change of the spine. 4. Severe degenerative change of the right glenohumeral joint. Report Dictated By: Marcy Arrieta at 03/23/2018 12:07 AM Report E-Signed By: Marcy Arrieta at 03/23/2018 12:25 AM WSN:[email or web address]
[2018-03-23 01:00] VITALS: BP 150/83
== END 2018-03-23 01:47 | disposition home or self-care (01) ==
LOC: ER 22:40
DX: R07.9 Chest pain, unspecified (principal)
CPT/HCPCS: 71045; 71275; 83880; 84484; 85025; 85379; 85610; 85730; 93005; 96361; 96374; 96375; 99284; A9270; J2405; J3010; J7050; J7120; Q9967; 82040; 82247; 82310; 82374; 82435; 82565; 82947; 84075; 84132; 84155; 84295; 84450; 84460; 84520

== ENCOUNTER → 2018-07-06 | Outpatient (CLI) | payer MEDICARE ==
[~2018-07-06] MED LIST changes: -AMLO-111 PO; +AMLO-125 PO
[2018-07-06 15:10] LABS: PLATELET COUNT, AUTOMATED 267 K/uL (150-450)
== END ==
LOC: LAB 14:13
PROVIDERS: ATTEND Urology
DX: C61 Malignant neoplasm of prostate (principal)
CPT/HCPCS: 36415; 82040; 82247; 82310; 82374; 82435; 82565; 82947; 84075; 84132; 84153; 84155; 84295; 84450; 84460; 84520; 85025

== ENCOUNTER → 2018-07-10 | Outpatient (REF) | payer MEDICARE | LOC: ZZSENDIN 11:54 | PROVIDERS: ATTEND Urology | DX: R31.1 Benign essential microscopic hematuria (principal); C61 Malignant neoplasm of prostate; M85.88 Other specified disorders of bone density and structure, other site | CPT/HCPCS: 81001; 87088 ==

== ENCOUNTER → 2018-07-23 | Outpatient (CLI) | payer MEDICARE ==
--- NOTE | 2018-07-23 10:06 | RADIOLOGY IMAGING REPORT ---
FACILITY: [facility] PATIENT NAME: Derian Torres : 1940 MR: [id number] V: [id number] EXAM DATE: ORDERING PHYSICIAN: MAULIK HOLCOMB TECHNOLOGIST: Location: [facility] [place] Patient: Derian Torres : 1940 Visit/Account:[id number] Date of Sevice: 07/23/2018 DEXA Scan Clinical history: Prostate cancer. Comparison: DEXA scan from 10/14/2012. LUMBAR SPINE: The bone mineral density (BMD) measured from L1-L4 correlates with a Z-score of 2.9 and a T-score of 2 which is Normal as defined by the World Health Organization. The corresponding risk of fracture in the lumbar spine is Not increased compared with a young adult reference population. This value has decrease by 3.6 % since the prior study. More than 5% change is considered significant. HIP: Bone mineral density (BMD) measured in the LEFT total hip region correlates with a Z-score 1.4 and a T-score of 0.2 which is normal as defined by the World Health Organization. The corresponding risk of fracture in the hip is Not i ncreased compared to a young adult reference population. This value has decrease by 1.4 % since the p rior study. More than 5% change is considered significant. T score left femoral neck -0.4 Bone mineral density (BMD) measured in the Femoral Neck region measures 1.014 g/cm?. IMPRESSION: 1. Lumbar spine: Normal. There has been 3.6% decrease in the bone mineral density since the previou s exam. 2. Left Total Hip: Normal. There has been 1.4% decrease in the bone mineral density since the previ ous exam. 3. Femoral Neck: Bone Mineral Density is 1.014 g/cm? The next DEXA scan of this patient should include the following sites: L1-L4 and the left hip. FRAX? WHO Fracture Risk Assessment Tool link: <http://www.shef.ac.uk/FRAX/tool.jsp?locationValue=9> PLEASE NOTE: 1) The World Health Organization defines low BMD as follows: T-score Normal > -1 Osteopenia < -1 and > -2.5 Osteoporosis < -2.5 without fractures Established osteoporosis < -2.5 with fractures 2) In general, you may wish to consider: Diagnosis Treatment Follow-up DEXA Normal BMD Prevention 2-3 years Osteopenia Prevention/therapy 1-2 years Osteoporosis Therapy Yearly 3) Fracture risk estimated from the T-score is more accurate for vertebral fractures (often spontane ous) than for hip fractures. Report Dictated By: Fina Humphreys MD at 07/23/2018 9:59 AM Report E-Signed By: Fina Humphreys MD at 07/23/2018 10:00 AM JERRYN:[email or web address]
--- NOTE | 2018-07-23 10:36 | RADIOLOGY IMAGING REPORT ---
FACILITY: [facility] PATIENT NAME: Derian Torres : 1940 MR: [id number] V: [id number] EXAM DATE: ORDERING PHYSICIAN: MAULIK HOLCOMB TECHNOLOGIST: Location: [facility] Patient: Derian Torres : 1940 Visit/Account:[id number] Date of Sevice: 07/23/2018 KIDNEYS EXAMINATION: Renal ultrasound. History: Microhematuria, prostate cancer COMPARISON STUDIES: June 09, 2017 FINDINGS: Kidneys: Right kidney- 8 x 5.1 x 4.7 cm Left kidney- 9.6 x 5.9 x 7 cm Uniform and symmetric blood flow in each kidney by Doppler ultrasound. Hydronephrosis: none There is an 8.5 mm cyst upper pole of the right kidney there is a 9 mm hypoechoic structure inferior left renal pelvis may represent a small cyst. Period there suggestion of a parapelvic cyst in the le ft kidney Bladder: Prevoid volume 109 mL. Post void residual 56 mL. Bilateral ureteral jets. There is a larg e diverticulum projecting from the posterior left-sided the bladder Abdominal aorta and IVC: Aorta and IVC are patent by Doppler ultrasound. IMPRESSION: Large diverticulum projecting from the posterior left-sided the bladder 8.5 mm cyst upper pole the right kidney 9 mm hypoechoic structure inferior left renal pelvis may represent an additional cyst Suggestion of parapelvic cysts in the left kidney 56 mL post void bladder residual Report Dictated By: Fina Humphreys MD at 07/23/2018 10:16 AM Report E-Signed By: Fina Humphreys MD at 07/23/2018 10:33 AM WSN:[email or web address]
== END ==
LOC: RAD 00:27
PROVIDERS: ATTEND Urology
DX: N28.1 Cyst of kidney, acquired (principal); N32.3 Diverticulum of bladder
CPT/HCPCS: 76705; 77080

== ENCOUNTER → 2018-07-24 | Outpatient (REF) | payer MEDICARE | LOC: ZZSENDIN 12:00 | PROVIDERS: ATTEND Urology | DX: R31.9 Hematuria, unspecified (principal) | CPT/HCPCS: 88108 ==

== ENCOUNTER → 2018-10-06 | Outpatient (CLI) | payer MEDICARE ==
[~2018-10-06] MED LIST changes: -OMEP-125 PO; +OMEP-126 PO
--- NOTE | 2018-10-06 17:28 | RADIOLOGY IMAGING REPORT ---
FACILITY: [facility] - [place] PATIENT NAME: Derian Torres : 1940 MR: [id number] V: [id number] EXAM DATE: ORDERING PHYSICIAN: JULIETA SMALL TECHNOLOGIST: [place] [facility] [place]ian [place] : 1940 Visit/Account:[id number] Date of Sevice: 10/06/2018 Exam type: CHEST PA LAT History: Bronchitis Comparison: March 22, 2018. Findings: There is mild hyperinflation of the lung almeida. There is no evidence of acute appearing infiltrates , pleural effusions or pulmonary edema. The cardiac silhouette is normal in size. There are moderat e spondylotic changes of the thoracic spine IMPRESSION: 1. Chronic hyperinflation of the lung almeida although no evidence of acute pulmonary consolidation Report Dictated By: Fina Humphreys MD at 10/06/2018 4:02 PM Report E-Signed By: Fina Humphreys MD at 10/06/2018 5:23 PM WSN:[email or web address]
== END ==
LOC: RAD 15:23
PROVIDERS: ATTEND Family Medicine
DX: R91.8 Other nonspecific abnormal finding of lung field (principal)
CPT/HCPCS: 71046

== ENCOUNTER → 2018-10-31 | Outpatient (CLI) | payer MEDICARE ==
[2018-10-31 08:39] LABS: PLATELET COUNT, AUTOMATED 195 K/uL (150-450)
== END ==
LOC: LAB 08:16
PROVIDERS: ATTEND Urology
DX: C61 Malignant neoplasm of prostate (principal); E78.00 Pure hypercholesterolemia, unspecified
CPT/HCPCS: 36415; 82040; 82247; 82310; 82374; 82435; 82465; 82565; 82947; 83718; 84075; 84132; 84153; 84155; 84295; 84403; 84450; 84460; 84478; 84520; 85025